=== PATIENT | male | born 1960 | race Caucasian/White ===

== ENCOUNTER 2017-08-21 14:44 | Observation (INO) ==
[2017-08-21] MEDS ORDERED: 0.9 % Sodium Chloride 1,000 ML IVC ONE (15:21)
--- NOTE | 2017-08-21 15:32 | Emergency Department Note ---
Disposition Clinical Impression: Pulmonary mass Pneumonia Qualifiers: Pneumonia type: due to unspecified organism Laterality: left Lung location: upper lobe of lung Qualified Code(s): J18.1 - Lobar pneumonia, unspecified organism Acute kidney failure Qualifiers: Acute renal failure type: unspecified Qualified Code(s): N17.9 - Acute kidney failure, unspecified Disposition: Admitted As Inpatient Condition: Good Forms: Work/School Release, ED Satisfaction Letter Time of Disposition: 18:43 Syncope HPI - General Chief Complaint: ED Dizziness Stated Complaint: dizziness when standing Time Seen by Provider: 08/21/17 15:02 Source: patient, EMS Mode of arrival: ambulatory Limitations: no limitations Nursing Notes Reviewed: Yes Vital Signs Reviewed: Yes - History of Present Illness HPI Narrative: 57 year old male with 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 He states that he is a [employer] [facility] and he has had near syncope 10s of times this past week and had at least 2-3 syncopal episodes. Cheyanne states that he is concerned that it is the blockages in his neck and his daughter at bedside states that she is agitated and angry at the [employer] and is very anxious at bedside and states "she wants something done!", cheyanne is states that when he has his syncopal episode he starts to see spots and then he sits down and it resolves. Cheyanne states that this has been an on going problem and is getting worse. Cheyanne upon arrival has a blood pressure that is 70/50s at this time. He denies all other sypmtomat other than increased right sided neck pain that radites into this head and back. - Related Data Home Medications Medication Instructions Recorded Confirmed Isosorbide MONOnitrate (24 HR) 15 mg PO DAILY 08/21/17 08/21/17 [Imdur] Lisinopril [Zestril] 10 mg PO DAILY 08/21/17 08/21/17 Metoprolol XL (24 HR) Succ [Toprol 50 mg PO DAILY 08/21/17 08/21/17 XL] Omeprazole [PriLOSEC] 20 mg PO DAILY 08/21/17 08/21/17 Allergies Allergy/AdvReac Type Severity Reaction Status Date / Time bee venom protein (honey bee) Allergy Anaphylaxis Verified 08/21/17 14:45 Constitutional: Denies: fever, chills, weakness, weight change Eyes: Denies: eye pain, eye discharge, vision change ENT ED: Denies: ear pain, throat pain, dental pain, hearing loss, epistaxis, congestion, dysphagia Cardiovascular: Denies: chest pain, palpitations, dyspnea on exertion, edema, syncope Respiratory: Denies: cough, dyspnea, wheezes, hemoptysis, stridor Gastrointestinal: Denies: abdominal pain, nausea, vomiting, diarrhea, constipation, hematemesis, melena, hematochezia Genitourinary: Denies: urgency, dysuria, frequency, hematuria Musculoskeletal: Reports: neck pain. Denies: back pain, arthralgia, myalgia Integumentary: Denies: rash, abrasion, lesions Neurological: Reports: other (syncope). Denies: headache, weakness, numbness, paresthesias, confusion, abnormal gait, vertigo Psychiatric: Denies: anxiety, depression, suicidal thoughts, homicidal thoughts , auditory hallucinations, visual hallucinations Endocrine: Denies: fatigue Hematological/Lymphatic: Denies: easy bleeding, easy bruising Allergic/Immunologic: Denies: facial swelling, urticaria Past Medical History - Past Medical History Medical history: Reports: non-contributory Psychiatric history: Reports: no psych history - Social History Smoking Status: Current every day smoker Smokeless Tobacco Status: No Alcohol use: Reports: none Drug use: Reports: none Physical Exam - General Limitations: no limitations General appearance: alert - Head Head exam: atraumatic, normocephalic, normal inspection - Eye Eye exam: Present: normal appearance, PERRL, EOMI - Expanded Eye Exam Pupils: Left: reactive - ENT ENT exam: normal exam, normal oropharynx, mucous membranes moist - Expanded ENT Exam External ear exam: Present: normal external inspection Mouth exam: Present: normal external inspection Teeth exam: Present: normal inspection Throat exam: Present: normal inspection - Neck Neck exam: Present: normal inspection, full ROM, trachea midline - Chest Chest inspection: Present: normal inspection, symmetric chest wall rise - Respiratory Respiratory exam: Present: normal lung sounds bilaterally - Cardiovascular Cardiovascular exam: Present: regular rate, normal rhythm, normal heart sounds - Abdominal Exam Abdominal exam: Present: soft, Non-Tender. Absent: tenderness, distention, guarding, rebound, rigidity - Extremities Exam Extremities exam: Present: normal inspection, full ROM. Absent: tenderness, pedal edema - Expanded Upper Extremity Exam Shoulder exam: Present: normal inspection, full ROM Arm exam: Present: normal inspection, full ROM Elbow exam: Present: normal inspection, full ROM Forearm/Wrist exam: Present: normal inspection, full ROM Hand exam: Present: normal inspection, full ROM Vascular exam: Normal: capillary refill, radial pulse - Expanded Lower Extremity Exam Hip/Pelvis exam: Present: normal inspection, full ROM Upper leg exam: Present: normal inspection, full ROM Knee exam: Present: normal inspection, full ROM Lower leg exam: Present: normal inspection, full ROM Ankle exam: Present: normal inspection, full ROM Foot/toe exam: Present: normal inspection, full ROM Neurovascular/Tendon exam: Absent: motor deficit, sensory deficit, tendon deficit Gait: observed and normal - Back Exam Back exam: Present: normal inspection, full ROM. Absent: tenderness - Neurological Exam Neurological exam: Present: alert, oriented X3 - Expanded Neurological Exam Patient oriented to: Present: person, place, time Speech: Present: fluid speech Cranial nerves: EOM function (II, III, IV, ): Normal, facial sensation (V): Normal, facial palsy (VII): Normal, gag reflex (IX): Normal, spinal accessory function (XI): Normal, tongue deviation (XII): Normal Cerebellar function: finger to nose: Normal, heel to sofia: Normal Cerebellar function: normal gait, Romberg normal Motor strength - LUE: 4/5 Motor strength - RUE: 4/5 Motor strength - LLE: 4/5 Motor strength - RLE: 4/5 Upper motor neuron exam: long neglect: Absent bilaterally, pronator drift: Absent bilaterally, Babinski sign: Absent bilaterally Sensory exam upper extremity: light touch: Normal, pin prick: Normal Sensory exam lower extremity: light touch: Normal, pin prick: Normal Coma Scale Eye Opening: Spontaneous Coma Scale Motor Response: Obeys Commands Coma Scale Verbal Response: Oriented Coma Scale Total: 15 - Psychiatric Psychiatric exam: Present: normal affect, normal mood - Skin Skin exam: Present: warm, dry, intact, normal color Course Course Narrative: we will do a syncope workup and include a CTA neck in addition and HCT. - Consultations Consultation #1: discussed case with Shelby ARREGUIN and she has accepted patient to her service. PAtinet and family have been updated and are agreeable to plan. Time: 18:42 Vital Signs Temperature 98.2 F 08/21/17 14:45 Pulse Rate 79 08/21/17 14:45 Respiratory Rate 16 08/21/17 14:45 Blood Pressure 98/50 08/21/17 14:45 O2 Sat by Pulse Oximetry 97 08/21/17 14:45 Temperature 98.2 F 08/21/17 14:45 Pulse Rate 79 08/21/17 14:45 Respiratory Rate 16 08/21/17 14:45 Blood Pressure 98/50 08/21/17 14:45 O2 Sat by Pulse Oximetry 97 08/21/17 14:45 Oxygen Delivery Oxygen Delivery Room Air Syncope - Medical Records Medical records reviewed: Yes I reviewed the patient's medical records. - Lab Data Lab results reviewed: Yes I reviewed the patient's lab results. Result diagrams: 08/21/17 15:15 08/21/17 15:15 Lab Results 08/21/17 08/21/17 08/21/17 Range/Units 15:15 15:15 15:15 WBC 7.9 (4.3-11.1) K/mcL RBC 3.70 L (4.19-5.50) M/mcL Hgb 10.9 L (12.9-16.9) g/dL Hct 33.1 L (37.5-50.1) % MCV 89.5 (83.0-100.0) fL MCH 29.5 (28.0-33.3) pg MCHC 32.9 (31.6-35.5) g/dL RDW 13.0 (11.5-14.5) % Plt Count 239 (140-400) K/mcL MPV 10.4 (9.4-12.4) fL Immature Gran % 0.3 (0-4) % Seg Neutrophils % 59.0 % Lymphocytes % 25.5 % Monocytes % 10.4 % Eosinophils % 4.0 % Basophils % 0.8 % Neutrophils # 4.7 (1.6-8.9) K/mcL Lymphocytes # 2.0 (0.6-4.6) K/mcL Monocytes # 0.8 (0.0-1.3) K/mcL Eosinophils # 0.3 (0.0-0.6) K/mcL Basophils # 0.1 (0.0-0.2) K/mcL PT 12.0 (9.4-12.1) Seconds INR 1.1 APTT 27.0 (26.0-36.0) Seconds Sodium 138 (136-145) mEq/L Potassium 4.3 (3.5-4.5) mEq/L Chloride 108 (98-109) mEq/L Carbon Dioxide 22 (19-29) mEq/L BUN 16 (8-26) mg/dL Creatinine 1.88 H (0.72-1.25) mg/dL Est GFR ( Amer) 45 L (> 60) Est GFR (Non-Af Amer) 37 L (> 60) BUN/Creatinine Ratio 9 (6-26) Glucose 82 (70-99) mg/dL Calculated Osmolality 286 (280-300) Calcium 9.2 (8.6-10.8) mg/dL Troponin I (0-0.03) ng/mL Urine Color (Yellow) Urine Clarity (Clear) Urine pH (5.0-8.0) pH Units Ur Specific [place] (1.010-1.025) Urine Protein (Neg-Trace) mg/dL Urine Glucose (UA) (Normal) mg/dL Urine Ketones (Negative) mg/dL Urine Blood (Negative) Urine Nitrite (Negative) Urine Bilirubin (Negative) Urine Urobilinogen (Normal) mg/dL Ur Leukocyte Esterase (Negative) Urine Microscopic RBC (0-3) per hpf Ur Squamous Epith Cells (None-Few) per lpf Urine Bacteria (None-Few) per hpf Hyaline Casts (None-Few) per lpf Ur Culture Indicated? (NO) Urine Opiates Screen (Kwodjw=969) ng/mL Ur Barbiturates Screen (Jhxfdh=358) ng/mL Ur Phencyclidine Scrn (Cutoff=25) ng/mL Ur Amphetamines Screen (Cwzdhe=5601) ng/mL U Benzodiazepines Scrn (Gcasid=416) ng/mL Urine Cocaine Screen (Cutoff= 300) ng/mL U Marijuana (THC) Screen (Cutoff = 50) ng/mL 08/21/17 08/21/17 08/21/17 Range/Units 15:15 17:32 17:32 WBC (4.3-11.1) K/mcL RBC (4.19-5.50) M/mcL Hgb (12.9-16.9) g/dL Hct (37.5-50.1) % MCV (83.0-100.0) fL MCH (28.0-33.3) pg MCHC (31.6-35.5) g/dL RDW (11.5-14.5) % Plt Count (140-400) K/mcL MPV (9.4-12.4) fL Immature Gran % (0-4) % Seg Neutrophils % % Lymphocytes % % Monocytes % % Eosinophils % % Basophils % % Neutrophils # (1.6-8.9) K/mcL Lymphocytes # (0.6-4.6) K/mcL Monocytes # (0.0-1.3) K/mcL Eosinophils # (0.0-0.6) K/mcL Basophils # (0.0-0.2) K/mcL PT (9.4-12.1) Seconds INR APTT (26.0-36.0) Seconds Sodium (136-145) mEq/L Potassium (3.5-4.5) mEq/L Chloride (98-109) mEq/L Carbon Dioxide (19-29) mEq/L BUN (8-26) mg/dL Creatinine (0.72-1.25) mg/dL Est GFR ( Amer) (> 60) Est GFR (Non-Af Amer) (> 60) BUN/Creatinine Ratio (6-26) Glucose (70-99) mg/dL Calculated Osmolality (280-300) Calcium (8.6-10.8) mg/dL Troponin I 0.01 (0-0.03) ng/mL Urine Color Yellow (Yellow) Urine Clarity Hazy (Clear) Urine pH 6.0 (5.0-8.0) pH Units Ur Specific [place] 1.012 (1.010-1.025) Urine Protein Negative (Neg-Trace) mg/dL Urine Glucose (UA) Normal (Normal) mg/dL Urine Ketones Negative (Negative) mg/dL Urine Blood Negative (Negative) Urine Nitrite Negative (Negative) Urine Bilirubin Negative (Negative) Urine Urobilinogen Normal (Normal) mg/dL Ur Leukocyte Esterase Negative (Negative) Urine Microscopic RBC 0-3 (0-3) per hpf Ur Squamous Epith Cells Few (None-Few) per lpf Urine Bacteria None Seen (None-Few) per hpf Hyaline Casts None Seen (None-Few) per lpf Ur Culture Indicated? NO (NO) Urine Opiates Screen Negative (Pxfhdk=360) ng/mL Ur Barbiturates Screen Negative (Pxxqdy=291) ng/mL Ur Phencyclidine Scrn Negative (Cutoff=25) ng/mL Ur Amphetamines Screen Negative (Ctzbwf=9719) ng/mL U Benzodiazepines Scrn Negative (Ajfnze=661) ng/mL Urine Cocaine Screen Positive H (Cutoff= 300) ng/mL U Marijuana (THC) Screen Positive H (Cutoff = 50) ng/mL - Radiology Data Radiology results reviewed: Yes I reviewed the patient's radiology results. - EKG Data EKG attestation: Yes I reviewed and interpreted this EKG. EKG results narrative: NSR with rate of 70. NO STEMI. normal interlva.s no change from 04/30/12. 1523
[2017-08-21 15:42] LABS: Basophils # 0.1 K/mcL (0.0-0.2); Basophils % 0.8 %; Eosinophils # 0.3 K/mcL (0.0-0.6); Hematocrit 33.1 % (37.5-50.1); Hemoglobin 10.9 g/dL (12.9-16.9); Immature Granulocytes % 0.3 % (0-4); Lymphocytes % 25.5 %; Mean Corpuscular HGB Conc 32.9 g/dL (31.6-35.5); Mean Corpuscular Hemoglobin 29.5 pg (28.0-33.3); Mean Corpuscular Volume 89.5 fL (83.0-100.0); Mean Platelet Volume 10.4 fL (9.4-12.4); Monocytes # 0.8 K/mcL (0.0-1.3); Monocytes % 10.4 %; Neutrophils # 4.7 K/mcL (1.6-8.9); Platelet Count 239 K/mcL (140-400)
[2017-08-21 15:45] LABS: INR 1.1
[2017-08-21 15:52] LABS: Calcium 9.2 mg/dL (8.6-10.8); Potassium 4.3 mEq/L (3.5-4.5)
[2017-08-21 17:47] LABS: Bilirubin,Urine Negative (Negative); Blood,Urine Negative (Negative); Color,Urine Yellow (Yellow); Glucose,Urine (UA) Normal (Normal); Ketones,Urine Negative (Negative); Leukocyte Esterase,Urine Negative (Negative); Nitrite,Urine Negative (Negative); Protein,Urine Negative (Neg-Trace); Specific Gravity,Urine 1.012 (1.010-1.025); Urobilinogen,Urine Normal (Normal)
[2017-08-21 17:53] LABS: Bacteria,Urine None Seen per hpf (None-Few); Hyaline Casts,Urine None Seen per lpf (None-Few); RBC,Urine 0-3 per hpf (0-3); Squamous Epithelial Cell,Urine Few per lpf (None-Few)
[2017-08-21 17:54] LABS: Amphetamine Screen,Urine Negative ng/mL (Cutoff=1000); Barbiturate Screen,Urine Negative ng/mL (Cutoff=200); Benzodiazepines Screen,Urine Negative ng/mL (Cutoff=200); Cannabinoid Screen,Urine Positive ng/mL (Cutoff = 50); Cocaine Screen,Urine Positive ng/mL (Cutoff= 300); Opiate Screen,Urine Negative ng/mL (Cutoff=300); Phencyclidine Screen,Urine Negative ng/mL (Cutoff=25)
[2017-08-21 17:56] LABS: Clarity,Urine Hazy (Clear)
[2017-08-21] MEDS ORDERED: Levofloxacin 750 MG/150 ML 750 MG/150 ML BAG IVPB ONE (18:02)
[2017-08-21] MEDS ORDERED: *HR* Enoxaparin 80 MG/0.8 ML SYRINGE SQ STA (18:11)
--- NOTE | 2017-08-21 22:24 | Internal Med History&Physical ---
Date of Encounter: 08/21/17 Time of Encounter: 21:15 Assessment and Plan (1) Syncope Current visit: Yes Status: Acute of unclear etiology CT head negative for any acute intracranial abnormality will rule out cardiogenic causes f/u carotid dopplers, 2D echo will obtain orthostatic vitals tele monitoring fall precautions pt was noted to be severely hypotensive upon arrival to the ER therefore it could also be related to drug induced hypotension causing syncope. Will hold antihypertensive medications at this time. Qualifiers: Syncope type: unspecified Qualified Code(s): R55 - Syncope and collapse (2) Acute kidney injury Current visit: Yes Status: Acute Unknown baseline renal function hold lisinopril at this time will closely monitor renal function (3) Pulmonary mass Current visit: Yes Status: Acute incidental finding on CT neck: Suspicious spiculated 1.1 cm nodule within the medial aspect of the left upper lung, concerning for neoplasm. Further evaluation with PET-CT is recommended. Additional nodular opacities within the lungs superiorly. These could be inflammatory, although ill-defined neoplasm remains in the differential as well. Please call pulmonology consultation in the morning (4) CHF (congestive heart failure) Current visit: Yes Status: Acute no clinical signs of acute CHF exacerbation will continue home medications holding BB at this time given positive tox screen for cocaine f/u 2D echo Qualifiers: Congestive heart failure type: unspecified congestive heart failure type Congestive heart failure chronicity: chronic Qualified Code(s): I50.9 - Heart failure, unspecified (5) Hypertension Current visit: Yes Status: Chronic Noted to be hypotensive upon arrival with SBP of 70 hold antihypertensive medications at this time monitor BP closely Qualifiers: Hypertension type: essential hypertension Qualified Code(s): I10 - Essential (primary) hypertension (6) Tobacco abuse Current visit: Yes Status: Acute smoking cessation counseling provided patient states he is trying to cut down refused nicotine replacement therapy (7) DVT prophylaxis Current visit: Yes Status: Acute Heparin SQ Internal Medicine - H&P: HPI Chief complaint: syncope Admitted From: Home Plans for Post Hospital Care: Home History of present illness: Mr. Hernandez is a 57 year old male with PMH of CHF, HTN, tobacco abuse who is brought to the hospital by family s/p syncopal episode. Patient states he is a patient with the [facility] system and has been trying to get his syncope work up done since June 2017 as he has been having recurrent syncopal episodes since then. He states he was doing yard work earlier today and he started feeling lightheaded and having black spots infront of his eyes due to which he went back into the house, shortly after he got into his house, he fainted and fell to the ground. Denies any injuries to the head or any trauma. States his daughter witnessed this episode that prompted his visit to the ER. He reports of being an every day smoker and reports of cutting down to 1/2ppd. He reported that his daughter uses cocaine and he got a cigarettes from her prior to coming to the hospital which had marijuana in them. He denies any cocaine use as his tox screen is positive for cocaine and marijuana. He denies any chest pain at this time. He states these syncopal episodes occur sporadically with the same presentation as it happened today. Denies any lightheadedness, dizziness, headache, chest pain, sob, abd pain, n/v, fever, or chills at this time. Code status: Full code Social history: everyday smoker, former marijuana and cocaine use. Pt adamantly refuses using any cocaine or marijuana but states that the cigarettes he received from his daughter earlier today might have been glazed with both marijuana and cocaine. Past Med Surg Social Fam HX - Past Medical History Medical history: CHF Psychiatric history: no psych history - Social History Smoking Status: Current every day smoker Smokeless Tobacco Status: No Alcohol use: none Drug use: none Internal Medicine - H&P: Meds Isosorbide MONOnitrate (24 HR) [Imdur] 15 mg PO DAILY 08/21/17 [History] Lisinopril [Zestril] 10 mg PO DAILY 08/21/17 [History] Metoprolol XL (24 HR) Succ [Toprol XL] 50 mg PO DAILY 08/21/17 [History] Omeprazole [PriLOSEC] 20 mg PO DAILY 08/21/17 [History] 3 Allergy/AdvReac Type Severity Reaction Status Date / Time bee venom protein (honey bee) Allergy Anaphylaxis Verified 08/21/17 14:45 All Systems PM: A 10-system review of systems was performed and is negative for pertinent findings except as documented above in the HPI. - Constitutional Constitutional: as per HPI - Constitutional Vitals: Temp Pulse Resp BP Pulse Ox 98.2 F 74 14 122/80 98 08/21/17 14:45 08/21/17 19:00 08/21/17 21:40 08/21/17 21:40 08/21/17 19:00 General appearance: Present: cooperative, A&O X 3, no acute distress, underweight, answers questions appropriately - Head Head exam: Present: atraumatic, normocephalic - Eye Eye exam: Present: conjuntiva pink, sclera anicteric - Respiratory Respiratory exam: Present: CTAB. Absent: respiratory distress, wheezes - Cardiovascular Cardiovascular exam: Present: RRR, +S1, +S2. Absent: diastolic murmur, gallop, rubs, systolic murmur - GI/Abdominal GI/Abdominal exam: Present: normal bowel sounds, soft, no peritoneal signs. Absent: distended, tenderness - Extremities Exam Extremities exam: Present: warm, radial pulses palpable and symmetrical. Absent : calf tenderness, cyanotic, pedal edema - Neurological Exam Neurological exam: Present: alert, oriented X3 - Psychiatric Psychiatric exam: Present: normal affect, normal mood Internal Med - H&P Results - Labs CBC & Chem 7: 08/21/17 15:15 08/21/17 15:15
[2017-08-21] MEDS ORDERED: Naloxone 0.4 MG/ML INJ IVP PRN (22:25)
[2017-08-21] MEDS ORDERED: Ondansetron 4 MG/2 ML VIAL IVP PRN (22:25)
[2017-08-21] MEDS ORDERED: *HR* Morphine 2 MG/ML SYRINGE IVP PRN (22:25)
[2017-08-21] MEDS ORDERED: *HR* OxyCODONE Immed Rel 5 MG TABLET PO PRN (22:25)
[2017-08-21] MEDS ORDERED: Ipratropium/Albuterol Neb 3 ML IH PRN (22:39)
[2017-08-22 05:17] LABS: Basophils % 0.8 %; Eosinophils # 0.3 K/mcL (0.0-0.6); Eosinophils % 5.4 %; Hematocrit 33.5 % (37.5-50.1); Immature Granulocytes % 0.2 % (0-4); Lymphocytes # 1.6 K/mcL (0.6-4.6); Mean Corpuscular HGB Conc 32.8 g/dL (31.6-35.5); Mean Corpuscular Hemoglobin 29.3 pg (28.0-33.3); Mean Corpuscular Volume 89.1 fL (83.0-100.0); Mean Platelet Volume 10.2 fL (9.4-12.4); Monocytes # 0.7 K/mcL (0.0-1.3); Monocytes % 13.2 %; Neutrophils # 2.4 K/mcL (1.6-8.9); Platelet Count 176 K/mcL (140-400); Red Blood Count 3.76 M/mcL (4.19-5.50); Red Cell Distribution Width 12.8 % (11.5-14.5); Segmented Neutrophils % 48.4 %
[2017-08-22 05:35] LABS: BUN/Creatinine Ratio 13 (6-26); Blood Urea Nitrogen 17 mg/dL (8-26); Carbon Dioxide 23 mEq/L (19-29); Chloride 113 mEq/L (98-109); Chol/HDL Ratio 5.1 (0-4.9); Cholesterol 139 mg/dL (< 200); Glucose 87 mg/dL (70-99); HDL Cholesterol 27 mg/dL (40-59); LDL Cholesterol,Calculated 91 mg/dL (0-99); Magnesium 1.9 mg/dL (1.6-2.6); Osmolality,Calculated 293 (280-300); Phosphorous 3.3 mg/dL (2.3-4.7); Sodium 141 mEq/L (136-145); Triglycerides 107 mg/dL (< 150); eGFR For African Americans > 60 (> 60); eGFR For Non-African Americans 56 (> 60)
[2017-08-22 05:42] LABS: Potassium 5.2 mEq/L (3.5-4.5)
[2017-08-22] MEDS: *HR* Heparin 5,000 UNIT/ML VIAL SQ SCH ×2 (06:24→17:58)
--- NOTE | 2017-08-22 09:09 | Pulmonology Consult Note ---
Date of Encounter: 08/22/17 Time of Encounter: 09:09 Assessment and Plan (1) Lung nodule Current Visit: Yes Status: Acute During smoking history primary lung cancer would be in the differential I reordered a formal CT of the thorax to further evaluate any other sort of changes I think that the other ill-defined opacities in left upper lobe are more related to chronic inflammatory changes. He will need follow-up in pulmonary clinic with likely PET/CT we can discuss sampling versus excision based upon statistical probability of malignancy (2) Syncope Current Visit: Yes Status: Acute This is being managed by the primary medicine service he says he feels a bit better since his been admitted Qualifiers: Syncope type: unspecified Qualified Code(s): R55 - Syncope and collapse (3) Tobacco abuse Current Visit: Yes Status: Acute I encouraged patient to stop smoking and gave him advice on ways to quit including nicotine replacement which could be provided for him inpatient (4) DVT prophylaxis Current Visit: Yes Status: Acute Recommend chemical DVT prophylaxis unless contraindication arises while inpatient (5) COPD (chronic obstructive pulmonary disease) Current Visit: Yes Status: Acute Visual long smoking history and emphysematous changes on CT scan he currently is managed with a [place]/Afua combination with can be continued on an as-needed basis recommend formal evaluation outpatient pulmonary clinic including PFTs Qualifiers: Emphysema type: unspecified Qualified Code(s): J43.9 - Emphysema, unspecified History of Present Illness Consult date: 08/22/17 Requesting physician: Ling García Reason for consult: abnormal CXR/CT Chief complaint: Dizziness History of present illness: Very pleasant 57-year-old gentleman past medical history of COPD and tobacco abuse who presented with concern for dizziness and syncope as part of this workup he underwent a CT of his neck and the lung cuts that were obtained showed a proximal only 1 cm left upper lobe spiculated nodule for which pulmonary's been consulted. Patient is a lifelong smoker started age 15 smoked 2 packs a day now down to about 1 pack a day he has been diagnosed with COPD in the past and takes Combivent for this. 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 He keeps a dog would not exotic pets. He says occasionally he uses illicit drugs and his urine tox was notable for both THC and cocaine on admission. He denies fevers chills shortness of breath or hemoptysis he also has not experienced night sweating or joint pain. He does occasionally cough sometimes this is productive but he thinks is related to his smoking. No family history of lung malignancy and himself does not have any previous history of cancer Past Med Surg Social Fam HX - Past Medical History Medical history: CHF, GERD, hypertension Psychiatric history: no psych history - Social History Smoking Status: Current every day smoker Smokeless Tobacco Status: No Alcohol use: none Drug use: none Medications and Allergies Isosorbide MONOnitrate (24 HR) [Imdur] 15 mg PO DAILY 08/21/17 [History] Lisinopril [Zestril] 10 mg PO DAILY 08/21/17 [History] Metoprolol XL (24 HR) Succ [Toprol XL] 50 mg PO DAILY 08/21/17 [History] Omeprazole [PriLOSEC] 20 mg PO DAILY 08/21/17 [History] 3 Allergy/AdvReac Type Severity Reaction Status Date / Time bee venom protein (honey bee) Allergy Anaphylaxis Verified 08/21/17 14:45 All Systems: A 10-system review of systems was performed and is negative for pertinent findings except as documented above in the HPI. Physical Examination Vital Signs: Vital Signs, Last 4 Hours Temp Pulse Resp BP Pulse Ox 08/22/17 07:28 98.1 F 77 15 124/84 98 08/22/17 05:16 97.8 F 72 16 126/77 96 General appearance: no acute distress Eyes: nonicteric ENT: oropharynx moist Neck: supple Effort: normal Auscultation: bilateral: clear Cardiovascular: regular rate and rhythm Gastrointestinal: normoactive bowel sounds Integumentary: normal Extremities: no edema, no clubbing Musculoskeletal: no deformities normal mental status, non-focal exam mood appropriate Results - Laboratory Findings CBC and BMP: 08/22/17 05:00 08/22/17 05:00 PT/INR, D-dimer PT 12.0 Seconds (9.4-12.1) 08/21/17 15:15 Abnormal lab findings: Abnormal lab results RBC 3.76 M/mcL (4.19-5.50) L 08/22/17 05:00 Hgb 11.0 g/dL (12.9-16.9) L 08/22/17 05:00 Hct 33.5 % (37.5-50.1) L 08/22/17 05:00 Potassium 5.2 mEq/L (3.5-4.5) H 08/22/17 05:00 Chloride 113 mEq/L (98-109) H 08/22/17 05:00 Creatinine 1.31 mg/dL (0.72-1.25) H 08/22/17 05:00 Est GFR (Non-Af Amer) 56 (> 60) L 08/22/17 05:00 HDL Cholesterol 27 mg/dL (40-59) L 08/22/17 05:00 Cholesterol/HDL Ratio 5.1 (0-4.9) H 08/22/17 05:00 Urine Cocaine Screen Positive ng/mL (Cutoff= 300) H 08/21/17 17:32 U Marijuana (THC) Screen Positive ng/mL (Cutoff = 50) H 08/21/17 17:32 - Diagnostic Findings Chest x-ray: report reviewed, image reviewed Additional studies: CT scan of the the cervical spine suspicious spiculated 1.1 cm nodules in the medial aspect left upper lobe - Clinical Findings Intake & Output: Intake & Output 08/21/17 08/22/17 08/22/17 23:59 07:59 15:59 Intake Total 150 / 1150 200 / 200 Output Total 0 / 0 Balance 150 / 1150 200 / 200 Weight 61.25 kg Consult Discharge Plan - Plan [facility]errals: [facility]Primary Care Provider[facility] -
[2017-08-22] MEDS: Isosorbide MONOnitrate (24 HR) 30 MG TAB.ER.24H PO SCH (10:45)
--- NOTE | 2017-08-22 18:16 | Internal Med Progress Note ---
Date of Encounter: 08/22/17 Time of Encounter: 10:00 - Assessment and plan (1) Positive urine drug screen Current Visit: Yes Status: Acute Assessment and plan: Drug screen shows positive for cocaine and marijuana. Patient denies drug use. (2) Syncope Current Visit: Yes Status: Acute Assessment and plan: Etiology is undetermined. Patient said he has almost a once a day syncope since June. [facility] - Place patient on continuous cardiac monitoring to rule out arrhythmia. - EKG reviewed, there is no signs of AV block or branch block. - Echocardiogram. - Orthostatic vitals. - It is reported patient has hypotension when presented to ER. We will hold all hypertension medication and close monitor BP. Qualifiers: Syncope type: unspecified Qualified Code(s): R55 - Syncope and collapse (3) Acute kidney injury Current Visit: Yes Status: Acute Assessment and plan: Elevated creatinine level on admission. No baseline available. Improved after hydration. (4) Tobacco abuse Current Visit: Yes Status: Acute Assessment and plan: Smoking cessation education. Patient declined nicotine patch (5) DVT prophylaxis Current Visit: Yes Status: Acute Assessment and plan: Heparin subcutaneously (6) CHF (congestive heart failure) Current Visit: Yes Status: Acute Assessment and plan: Stable. Appears euvolemic. Repeat Echo LVEF 50-55%. Mild diastolic dysfunction Qualifiers: Congestive heart failure type: unspecified congestive heart failure type Congestive heart failure chronicity: chronic Qualified Code(s): I50.9 - Heart failure, unspecified (7) Hypertension Current Visit: Yes Status: Chronic Assessment and plan: Hold hypertension medication for now because patient presented hypotension ER. Closely monitor BP Qualifiers: Hypertension type: essential hypertension Qualified Code(s): I10 - Essential (primary) hypertension (8) Lung nodule Current Visit: Yes Status: Chronic Assessment and plan: Pulmonary consult appreciated. Outpatient follow-up with pulmonology - Time Spent With Patient 25 - 35 minutes - Subjective Interval history: Patient is a 57-year-old male admitted for syncope. His past medical history is significant for tobacco abuse, CHF, hypertension. Pt was seen and examined. Denies dizziness, palpitation, shortness of breath, or chest pain. Vitals are stable. Patient was found pulmonary nodule on CT. Pulmonology consult is appreciated. We will consider outpatient PET/CT scan and follow-up with pulmonology. Continue syncope workup. - Constitutional Vitals: Temp Pulse Resp BP Pulse Ox 97.8 F 70 15 110/67 96 08/22/17 15:00 08/22/17 15:00 08/22/17 15:00 08/22/17 15:00 08/22/17 15:00 General appearance: Present: cooperative, A&O X 3, no acute distress, underweight, answers questions appropriately - Head Head exam: Present: atraumatic, normocephalic - Eye Eye exam: Present: PERRL, conjuntiva pink, sclera anicteric Pupils: Present: PERRL - Neck Neck exam general surgery: Present: supple, trachea midline. Absent: lymphadenopathy - Respiratory Respiratory exam: Present: CTAB. Absent: accessory muscle use, rales, rhonchi, wheezes - Cardiovascular Cardiovascular exam: Present: RRR, +S1, +S2. Absent: diastolic murmur, gallop, rubs, systolic murmur - GI/Abdominal GI/Abdominal exam: Present: normal bowel sounds, soft, no peritoneal signs. Absent: distended, tenderness - Extremities Exam Extremities exam: Present: warm, radial pulses palpable and symmetrical. Absent : calf tenderness, cyanotic, pedal edema - Neurological Exam Neurological exam: Present: CN II-XII intact, oriented X3, no focal deficits. Absent: pronater drift, facial droop, speech deficit - Skin Skin exam: Present: dry, intact Internal Medicine: Result - Labs CBC & Chem 7: 08/22/17 05:00 08/22/17 05:00 Labs: Short CBC 08/22/17 Range/Units 05:00 WBC 5.0 (4.3-11.1) K/mcL Hgb 11.0 L (12.9-16.9) g/dL Hct 33.5 L (37.5-50.1) % Plt Count 176 (140-400) K/mcL Neutrophils # 2.4 (1.6-8.9) K/mcL BMP 08/22/17 05:00 Sodium 141 Potassium 5.2 H Chloride 113 H Carbon Dioxide 23 BUN 17 Creatinine 1.31 H Glucose 87 Calcium 9.0 - ABG Interpretation ABG results: PT/INR, D-dimer PT 12.0 Seconds (9.4-12.1) 08/21/17 15:15 - EKG Interpretation EKG Interpreted by Myself: Yes EKG shows normal: sinus rhythm Rate: normal - Impressions Impressions Chest CT 08/22/17 09:45 IMPRESSION: 1. 12 x 12 mm nodule in the medial left upper lobe has enlarged from 3-[address] scan 05/01/2011. Consider biopsy and/or PET-CT scan. 2. 8 x 5 mm peripheral nodule in the right lower lobe is below the reliable PET imaging threshold, new compared to the prior CT scan. 3. Mixed ground-glass and solid nodule in the peripheral left upper lobe has enlarged from 05/01/2011, suggesting a low-grade malignancy such as adenocarcinoma in situ. 4. Ground-glass nodule in the right upper lobe. Attention on follow-up. RECOMMENDATIONS: Fleischner Society guidelines for follow-up and management of incidentally detected pulmonary nodules: Multiple Solid Nodules: Nodule size less than 6 mm In a low-risk patient, no routine follow-up. In a high-risk patient, optional CT at 12 months. Nodule size equals 6-8 mm In a low-risk patient, CT at 3-6 months, then consider CT at 18-24 months. In a high-risk patient, CT at 3-6 months, then CT at 18-24 months. Nodule size greater than 8 mm In a low-risk patient, CT at 3-6 months, then consider CT at 18-24 months. In a high-risk patient, CT at 3-6 months, then CT at 18-24 months. - Low risk patients include individuals with minimal or absent history of smoking and other known risk factors. - High risk patients include individuals with a history or smoking or known risk factors. Radiology 2017 http://pubs.rsna.org/doi/full/10.1148/[email or web address] D/ / Damon Burns MD / Damon Burns MD Interpreting Provider: Damon Burns MD Echocardiogram 08/22/17 22:26 Impressions: LVEF 50-55%. Normal LV chamber size, wall thickness and function. Mild left ventricular diastolic dysfunction. Normal right ventricular structure and function. Mild pulmonary hypertension. No significant valvular dysfunction. Left Ventricular Wall Motion: Rest Echo Findings All wall segments showed normal motion. Findings: Study Quality * Technically adequate exam. ECG Findings * Possible ectopic atrial rhythm. Premature beats noted. Left Ventricle * LVEF 50-55%. * Normal LV chamber size, wall thickness and function. * Mild left ventricular diastolic dysfunction. Right Ventricle * Normal right ventricular structure and function. Left Atrium * Mild to moderately dilated left atrium. Right Atrium * Mildly dilated right atrium. Interatrial Septum * No evidence of PFO by color Doppler. Aortic Valve * Trileaflet aortic valve with normal function. * No aortic regurgitation. * No aortic stenosis. Mitral Valve * Normal mitral valve structure and function. * No mitral stenosis. * Trace mitral regurgitation. Tricuspid Valve * Normal tricuspid valve structure and function. * Trace tricuspid regurgitation. * Mild pulmonary hypertension. Pulmonic Valve * Normal pulmonic valve structure and function. * No pulmonic regurgitation. Aorta * Normally sized aortic root. Pericardium * The pericardium appears normal. IVC * Normal IVC dimensions and inspiratory collapse. Pulmonary Artery * Normal visualized portions of the main pulmonary artery. Consult Discharge Plan - Plan [facility]errals: [facility] [Primary Care Provider] -
[2017-08-23] MEDS: *HR* Heparin 5,000 UNIT/ML VIAL SQ SCH ×2 (06:11→19:04)
[2017-08-23 06:44] LABS: Basophils % 0.7 %; Eosinophils # 0.2 K/mcL (0.0-0.6); Eosinophils % 5.4 %; Hematocrit 37.2 % (37.5-50.1); Hemoglobin 12.4 g/dL (12.9-16.9); Immature Granulocytes % 0.2 % (0-4); Lymphocytes # 1.4 K/mcL (0.6-4.6); Lymphocytes % 30.4 %; Mean Corpuscular HGB Conc 33.3 g/dL (31.6-35.5); Mean Corpuscular Hemoglobin 29.9 pg (28.0-33.3); Mean Corpuscular Volume 89.6 fL (83.0-100.0); Monocytes # 0.5 K/mcL (0.0-1.3); Monocytes % 10.5 %; Neutrophils # 2.4 K/mcL (1.6-8.9); Platelet Count 179 K/mcL (140-400); Red Blood Count 4.15 M/mcL (4.19-5.50); Red Cell Distribution Width 12.9 % (11.5-14.5); Segmented Neutrophils % 52.8 %
[2017-08-23 07:00] LABS: BUN/Creatinine Ratio 19 (6-26); Blood Urea Nitrogen 19 mg/dL (8-26); Calcium 9.5 mg/dL (8.6-10.8); Carbon Dioxide 26 mEq/L (19-29); Chloride 110 mEq/L (98-109); Glucose 99 mg/dL (70-99); Osmolality,Calculated 296 (280-300); Potassium 4.8 mEq/L (3.5-4.5); Sodium 142 mEq/L (136-145); eGFR For African Americans > 60 (> 60); eGFR For Non-African Americans > 60 (> 60)
--- NOTE | 2017-08-23 08:06 | Pulmonology Progress Note ---
Date of Encounter: 08/23/17 Time of Encounter: 08:06 Assessment and Plan (1) Lung nodule Current Visit: Yes Status: Chronic This is a 56-year-old gentleman with a long smoking history who appears to have a 1.1 cm left upper lobe nodule that has grown significantly since 2010. This is worrisome for possibility of primary lung malignancy (a slow-growing variant) . In addition he has several other more inflammatory/chronic changes in the long that will need to be followed up in. Preps more most concerning is a mediastinal lymph node that is 1.5 cm. We will plan to proceed with PET CT as outpatient with plan for EBUS/ Navigational biopsy vs CT biopsy although the latter may be a bit more difficult because of proximity to the great vessels. Navigational bronchoscopy could be considered but this too would be relatively difficult procedure but would need to be discussed with the patient down the line. There is an option of possibility of surgical resection this will also be discussed with the patient in clinic. Please make sure discharge pulmonary clinic appointment will be made and I will follow up with our staff is reasonable to schedule. (2) Syncope Current Visit: Yes Status: Acute This is being evaluated by the primary medicine service Qualifiers: Syncope type: unspecified Qualified Code(s): R55 - Syncope and collapse (3) Tobacco abuse Current Visit: Yes Status: Acute I again encouraged the patient to remain tobacco free he has refused nicotine patch up to this point we can also discuss this ongoing tobacco abuse counseling in the outpatient setting and also have excellent programs available at the [facility] it the patient is interested in joining one of those (4) DVT prophylaxis Current Visit: Yes Status: Acute (5) COPD (chronic obstructive pulmonary disease) Current Visit: Yes Status: Acute Does not appear to have acute exacerbation continued metered-dose inhaler on an as needed basis and this can be discussed further in clinic with PFTs Qualifiers: Emphysema type: unspecified Qualified Code(s): J43.9 - Emphysema, unspecified Subjective Principal diagnosis: Syncope Interval history: Respiratory status is stable. It appears the dizziness and syncope is symptoms have been mitigated some degree workup is ongoing Objective PUL Vital signs: Last Vital Signs Temp 98.0 F 08/23/17 07:25 Pulse 78 08/23/17 07:25 Resp 14 08/23/17 07:25 BP 143/82 08/23/17 07:25 Pulse Ox 97 08/23/17 07:25 Results - Laboratory Findings CBC and BMP: 08/23/17 06:35 08/23/17 06:35 PT/INR, D-dimer PT 12.0 Seconds (9.4-12.1) 08/21/17 15:15 Abnormal lab findings: Abnormal lab results RBC 4.15 M/mcL (4.19-5.50) L 08/23/17 06:35 Hgb 12.4 g/dL (12.9-16.9) L 08/23/17 06:35 Hct 37.2 % (37.5-50.1) L 08/23/17 06:35 Potassium 4.8 mEq/L (3.5-4.5) H 08/23/17 06:35 Chloride 110 mEq/L (98-109) H 08/23/17 06:35 HDL Cholesterol 27 mg/dL (40-59) L 08/22/17 05:00 Cholesterol/HDL Ratio 5.1 (0-4.9) H 08/22/17 05:00 Urine Cocaine Screen Positive ng/mL (Cutoff= 300) H 08/21/17 17:32 U Marijuana (THC) Screen Positive ng/mL (Cutoff = 50) H 08/21/17 17:32 - Diagnostic Findings CT scan - chest: report reviewed, image reviewed - Clinical Findings Intake & Output: Intake & Output 08/22/17 08/23/17 08/23/17 23:59 07:59 15:59 Intake Total 100 / 100 100 / 100 Output Total 0 / 0 Balance 100 / 100 100 / 100 Weight 61.4 kg Consult Discharge Plan - Plan [facility]: [facility] [Primary Care Provider] -
[2017-08-23] MEDS: Isosorbide MONOnitrate (24 HR) 30 MG TAB.ER.24H PO SCH (10:03)
--- NOTE | 2017-08-23 17:52 | Cardiology Consult Note ---
<Macario Grayson - Last Filed: 08/23/17 17:41> Date of Encounter: 08/23/17 Time of Encounter: 17:41 Assessment and Plan (1) Syncope Status: Acute H/o of syncopal events for the past three months. They mostly occur with sudden position change or bending over. Poor fluid intake. Drinks little water. Drinks soda mostly. B/p only 70/50 on admission. Mild GARY. Likely hypovolemic. Start IV hydration. TTE showed preserved EF and no significant valvular disease. Telemetry review shows Sr with PVC, occasional couplet. Avg HR 77 bpm. No pauses or bradycardia seen. No VT. No concerning arrhythmia seen. Encouraged increase fluid intake, IV hydration, stop lisinopril and imdur. Unclear why he is taking imdur. Denies CAD/chest pain. Continue low dose bb for PVC if he can tolerate. Slow position changes encouraged. Qualifiers: Syncope type: unspecified Qualified Code(s): R55 - Syncope and collapse Discussion w patient/family: The assessment and plan as outlined above was discussed with the patient and/or family members who expressed understanding and agreement. All questions were answered. Thank you for involving us in the care of your patient. Please call with any questions. History of Present Illness Consult date: 08/23/17 Requesting physician: Heidi Moyer Consult reason: Syncope Chief complaint: dizziness, passing out History of present illness: Mr. Hernandez is a 57 year old male with a history of hTN, HLD, COPD, and lung nodules who presented from the [facility] after feeling like he was going to pass out at home. he reports passing out frequently at home since June of this year. He often has vision changes and dizziness with position change. He passed out two days ago after bending down doing yard work and quickly standing up and starting to walk. Sometimes if he moves slower or sits back down he will not pass out. He may also have SOB prior to the syncopal event. He denies loss of bowel or urine. Denies chest pain or palpitations. Denies orthopnea, PND, or edema. He was evaluated at the [facility] and was diagnosed with inner ear infection in June. Carotid US one month ago showed bilateral non-stenotic plaque. On admission he was reported to have b/p 70/50. Past Med Surg Social Fam HX - Past Medical History Attestation: Yes The following information was validated with the patient. Medical history: CHF (Reports history of CHF in 2004. [facility] completed a that time with no intervention. ), COPD, GERD, hypertension Psychiatric history: no psych history - Social History Smoking Status: Current every day smoker Smokeless Tobacco Status: No Alcohol use: none Drug use: none Medications and Allergies Omeprazole [PriLOSEC] 20 mg PO DAILY 08/21/17 [History] Metoprolol [Lopressor] 12.5 mg PO BID #30 tablet 08/24/17 [Rx] 3 Allergy/AdvReac Type Severity Reaction Status Date / Time bee venom protein (honey bee) Allergy Anaphylaxis Verified 08/21/17 14:45 All Systems Review: A 10-system review of systems was performed and is negative for pertinent findings except as documented above in the HPI. Physical Examination Vital Signs, Last 4 Hours Temp Pulse Resp BP Pulse Ox 08/23/17 15:24 97.8 F 88 14 110/76 94 General: Conversant, No Apparent Distress HEENT: Atraumatic, Normocephaly, Mucus Membranes Moist Neck: No JVD, Normal carotid pulses Cardiac: Reg Rate and Rhythm, Normal S1 and S2, No Murmur Lungs: Normal Breath Sounds, No Wheeze, Rales, Rhonchi Neuro: Alert and responsive, No focal deficits noted Abdomen: Soft, Non-Tender Skin: No rashes noted on visualized skin Musculoskeletal: No Chest Wall Tenderness Extremities: No Clubbing, No Cyanosis, No Edema, Normal Pulses Results 08/23/17 06:35 08/23/17 06:35 Lab Results 08/23/17 08/23/17 06:35 06:35 WBC 4.5 Hgb 12.4 L Hct 37.2 L Plt Count 179 Sodium 142 Potassium 4.8 H Chloride 110 H Carbon Dioxide 26 BUN 19 Creatinine 0.99 Glucose 99 Calcium 9.5 - Imaging and Cardiology Echo: report reviewed Consult Discharge Plan - Plan Instructions: Heart Failure (DC), Acute Kidney Injury (DC), Syncope (DC), Chronic Obstructive Pulmonary Disease (DC), Chronic Hypertension (DC), Pneumonia (DC) Additional Instructions: Please arrange pulmonology office visit in next week. [facility]errals: [facility] [Primary Care Provider] - Prescriptions: Metoprolol [Lopressor] 12.5 mg PO BID #30 tablet <Gabriela Art - Last Filed: 08/24/17 13:30> Date of Encounter: 08/24/17 Assessment and Plan Discussion w patient/family: The assessment and plan as outlined above was discussed with the patient and/or family members who expressed understanding and agreement. All questions were answered. Thank you for involving us in the care of your patient. Please call with any questions. History of Present Illness History of present illness: Mr. Hernandez is a 57 year old male All Systems Review: A 10-system review of systems was performed and is negative for pertinent findings except as documented above in the HPI. Results 08/24/17 06:41 08/24/17 06:41 Lab Results 08/24/17 08/24/17 06:41 06:41 WBC 6.1 Hgb 12.0 L Hct 36.4 L Plt Count 194 Sodium 142 Potassium 4.2 Chloride 109 Carbon Dioxide 25 BUN 18 Creatinine 0.92 Glucose 89 Calcium 9.3 Magnesium 1.8 - Attending Attestation I examined this patient and my medical decision-making was reviewed with the Resident Physician. I agree with the documented findings, disposition and treatment plan. Mr. Hernandez reports a history of dizziness preceding loss of consciousness over the last few months. He describes orthostatic symptoms and admits to poor fluid intake. Demonstrated ARF on presentation that has resolved. Both lisinopril and imdur have been stopped. Initial BP 90 systolic has now improved. He's received IVFs. Echo demonstrated normal EF and no significant valve issues. No concerning telemetry findings. He feels much better today. I asked the nurse to walk him in the [place] with assistance. If no further dizziness, it appears reasonable to discharge. No further recommendations. Will sign off. Please call with questions.
[2017-08-23] MEDS ORDERED: 0.9 % Sodium Chloride 1,000 ML IVC SCH (18:15)
--- NOTE | 2017-08-23 18:48 | Internal Med Progress Note ---
Date of Encounter: 08/23/17 Time of Encounter: 10:00 - Assessment and plan (1) Positive urine drug screen Current Visit: Yes Status: Acute Assessment and plan: Drug screen shows positive for cocaine and marijuana. Patient denies drug use. (2) Syncope Current Visit: Yes Status: Acute Assessment and plan: Etiology is undetermined. Patient said he has almost a once a day syncope since June. [facility] but etiology undetermined. - Place patient on continuous cardiac monitoring to rule out arrhythmia. - EKG reviewed, there is no signs of AV block or branch block. - Echocardiogram. - Orthostatic vitals. - It is reported patient has hypotension when presented to ER. We will hold all hypertension medication and close monitor BP. - Cardiology consult appreciated, medication adjusted. Qualifiers: Syncope type: unspecified Qualified Code(s): R55 - Syncope and collapse (3) Acute kidney injury Current Visit: Yes Status: Acute Assessment and plan: Elevated creatinine level on admission. No baseline available. Improved after hydration. (4) Tobacco abuse Current Visit: Yes Status: Acute Assessment and plan: Smoking cessation education. Patient declined nicotine patch (5) DVT prophylaxis Current Visit: Yes Status: Acute Assessment and plan: Heparin subcutaneously (6) CHF (congestive heart failure) Current Visit: Yes Status: Acute Assessment and plan: Stable. Appears euvolemic. Repeat Echo LVEF 50-55%. Mild diastolic dysfunction Qualifiers: Congestive heart failure type: unspecified congestive heart failure type Congestive heart failure chronicity: chronic Qualified Code(s): I50.9 - Heart failure, unspecified (7) Hypertension Current Visit: Yes Status: Chronic Assessment and plan: Hold hypertension medication for now because patient presented hypotension ER. Closely monitor BP Qualifiers: Hypertension type: essential hypertension Qualified Code(s): I10 - Essential (primary) hypertension (8) Lung nodule Current Visit: Yes Status: Chronic Assessment and plan: Pulmonary consult appreciated. Outpatient follow-up with pulmonology - Subjective Interval history: Patient is a 57-year-old male admitted for syncope. His past medical history is significant for tobacco abuse, CHF, hypertension. Pt was seen and examined. Denies dizziness, palpitation, shortness of breath, or chest pain. Vitals are stable. No syncope today. Cardiology consult appreciated. The PVCs on Monitoring, Patient Was Placed on Low Rate Beta Delma. Continue Holding Lisinopril. Hold imdur. - Constitutional Vitals: Temp Pulse Resp BP Pulse Ox 97.8 F 88 14 110/76 94 08/23/17 15:24 08/23/17 15:24 08/23/17 15:24 08/23/17 15:24 08/23/17 15:24 General appearance: Present: cooperative, A&O X 3, no acute distress, underweight, answers questions appropriately - Head Head exam: Present: atraumatic, normocephalic - Eye Eye exam: Present: PERRL, conjuntiva pink, sclera anicteric Pupils: Present: PERRL - Neck Neck exam general surgery: Present: supple, trachea midline. Absent: lymphadenopathy - Respiratory Respiratory exam: Present: CTAB. Absent: accessory muscle use, rales, rhonchi, wheezes - Cardiovascular Cardiovascular exam: Present: RRR, +S1, +S2. Absent: diastolic murmur, gallop, rubs, systolic murmur - GI/Abdominal GI/Abdominal exam: Present: normal bowel sounds, soft, no peritoneal signs. Absent: distended, tenderness - Extremities Exam Extremities exam: Present: warm, radial pulses palpable and symmetrical. Absent : calf tenderness, cyanotic, pedal edema - Neurological Exam Neurological exam: Present: CN II-XII intact, oriented X3, no focal deficits. Absent: pronater drift, facial droop, speech deficit - Skin Skin exam: Present: dry, intact Internal Medicine: Result - Labs CBC & Chem 7: 08/23/17 06:35 08/23/17 06:35 Labs: Short CBC 08/23/17 Range/Units 06:35 WBC 4.5 (4.3-11.1) K/mcL Hgb 12.4 L (12.9-16.9) g/dL Hct 37.2 L (37.5-50.1) % Plt Count 179 (140-400) K/mcL Neutrophils # 2.4 (1.6-8.9) K/mcL BMP 08/23/17 06:35 Sodium 142 Potassium 4.8 H Chloride 110 H Carbon Dioxide 26 BUN 19 Creatinine 0.99 Glucose 99 Calcium 9.5 - ABG Interpretation ABG results: PT/INR, D-dimer PT 12.0 Seconds (9.4-12.1) 08/21/17 15:15 Consult Discharge Plan - Plan [facility]errals: [facility] [Primary Care Provider] -
[2017-08-24] MEDS: *HR* Heparin 5,000 UNIT/ML VIAL SQ SCH (06:04)
[2017-08-24 07:42] LABS: Basophils % 0.7 %; Eosinophils # 0.2 K/mcL (0.0-0.6); Hematocrit 36.4 % (37.5-50.1); Immature Granulocytes % 0.2 % (0-4); Lymphocytes # 1.5 K/mcL (0.6-4.6); Lymphocytes % 24.2 %; Mean Corpuscular Hemoglobin 29.3 pg (28.0-33.3); Mean Corpuscular Volume 88.8 fL (83.0-100.0); Mean Platelet Volume 10.5 fL (9.4-12.4); Monocytes # 0.5 K/mcL (0.0-1.3); Monocytes % 8.9 %; Neutrophils # 3.8 K/mcL (1.6-8.9); Platelet Count 194 K/mcL (140-400); Red Cell Distribution Width 12.7 % (11.5-14.5)
[2017-08-24 07:53] VITALS: BP 133/77
[2017-08-24 08:35] LABS: BUN/Creatinine Ratio 20 (6-26); Blood Urea Nitrogen 18 mg/dL (8-26); Calcium 9.3 mg/dL (8.6-10.8); Carbon Dioxide 25 mEq/L (19-29); Chloride 109 mEq/L (98-109); Glucose 89 mg/dL (70-99); Magnesium 1.8 mg/dL (1.6-2.6); Osmolality,Calculated 295 (280-300); Potassium 4.2 mEq/L (3.5-4.5); Sodium 142 mEq/L (136-145); eGFR For African Americans > 60 (> 60); eGFR For Non-African Americans > 60 (> 60)
--- NOTE | 2017-08-24 11:38 | Discharge Summary ---
Date of Encounter: 08/24/17 Time of Encounter: 10:00 - Discharge Diagnosis (1) Positive urine drug screen Priority: Primary Status: Acute (2) Syncope Priority: Primary Status: Acute Qualifiers: Syncope type: unspecified Qualified Code(s): R55 - Syncope and collapse (3) Acute kidney injury Priority: Primary Status: Acute (4) Tobacco abuse Priority: Primary Status: Acute (5) DVT prophylaxis Priority: Secondary Status: Acute (6) CHF (congestive heart failure) Priority: Secondary Status: Acute Qualifiers: Congestive heart failure type: unspecified congestive heart failure type Congestive heart failure chronicity: chronic Qualified Code(s): I50.9 - Heart failure, unspecified (7) Hypertension Priority: Secondary Status: Chronic Qualifiers: Hypertension type: essential hypertension Qualified Code(s): I10 - Essential (primary) hypertension (8) Lung nodule Priority: Primary Status: Chronic - Discharge Medications Prescriptions: Metoprolol [Lopressor] 12.5 mg PO BID #30 tablet Home Medications: Omeprazole [PriLOSEC] 20 mg PO DAILY 08/21/17 [History] Metoprolol [Lopressor] 12.5 mg PO BID #30 tablet 08/24/17 [Rx] Allergies/Adverse Reactions: 3 Allergy/AdvReac Type Severity Reaction Status Date / Time bee venom protein (honey bee) Allergy Anaphylaxis Verified 08/21/17 14:45 Procedures/tests Complete & Pending: Procedures Performed prior 72 hours Category Date Time Status CT chest wo con [CT] Routine Cat Scan 08/22/17 09:45 Completed ECG 12 lead ECG [ECG] Routine Y 08/22/17 05:31 Completed EV echocardiogram Stat Y 08/22/17 22:26 Completed - Notes to Outpatient Provider 1. Patient was found hypotension in emergency room, which most likely contributed to his syncope. His home medication has been changed. DC Imdur, lisinopril, metoprolol XL 50 mg by mouth daily. Place patient on low-dose metoprolol at 12.5 mg by mouth twice a day. Patient's vitals being stable on current medications. Please closely follow up his blood pressure. 2. Patient found lung nodule through CAT scan, with enlarged lymph node, need to follow pulmonology as outpatient. Date of admission: 08/21/17 19:16 [facility] care physician: [facility] Consults: 08/22/17 08:16 Consult to Pulmonology [CONS] Routine Consulting Provider: [facility] Reason for Consult: Incidental lung nodule 1.1cm on neck CT. Pt is a smoker Call Completed: No 08/23/17 13:40 Consult to Cardiology [CONS] Routine Comment: Consulting Provider: Cardiology Klaudia Reason for Consult: Syncope almost once a day Call Completed: Yes Discharging clinician: Ling García Anticipated date of discharge: 08/24/17 - Patient Status Disposition: Home, Self-Care Condition: Good Functional capacity at discharge: independent ambulation Overall status at discharge: patient is back to baseline - Discharge Instructions Follow Up With: [facility] [Primary Care Provider] - Additional Instructions: Please arrange pulmonology office visit in next week. - Diet and Activity Activity: increase activity as tolerated Diet: advance to your usual diet Interval History: HPI: Mr. Hernandez is a 57 year old male with PMH of CHF, HTN, tobacco abuse who is brought to the hospital by family s/p syncopal episode. Patient states he is a patient with the [facility] system and has been trying to get his syncope work up done since June 2017 as he has been having recurrent syncopal episodes since then. He states he was doing yard work earlier today and he started feeling lightheaded and having black spots infront of his eyes due to which he went back into the house, shortly after he got into his house, he fainted and fell to the ground. Denies any injuries to the head or any trauma. States his daughter witnessed this episode that prompted his visit to the ER. He reports of being an every day smoker and reports of cutting down to 1/2ppd. He reported that his daughter uses cocaine and he got a cigarettes from her prior to coming to the hospital which had marijuana in them. He denies any cocaine use as his tox screen is positive for cocaine and marijuana. He denies any chest pain at this time. He states these syncopal episodes occur sporadically with the same presentation as it happened today. Denies any lightheadedness, dizziness, headache, chest pain, sob, abd pain, n/v, fever, or chills at this time. Hospital course: Mr. Hernandez is a 57 year old male admitted for syncope. Patient was placed on continuous cardiac monitoring, echocardiogram has been placed. Results are unremarkable. Patient had recent duplex carotid already, negative for stenosis. Patient was found hypotensive with SBP 70s upon arriving emergency room. His home BP medication lisinopril and metoprolol XL 50 mg daily has been held during hospitalization. His BP is stable without BP medication. Patient was found multiple PVCs, cardiology consult saw patient and helped reviewing cardiac monitoring strip. Patient was added low-dose metoprolol and discontinued his Imdur by cardiology. Patient's vitals stable after medication adjustment and he has no syncope episode during hospitalization. He was educated to move slowly. Incidentally patient was found a lung nodule, pulmonology consult was called and saw patient. Patient will follow up with pulmonology as outpatient. I saw and examined the patient today. He is awake alert, oriented 3. Denies dizziness or lightheaded, denies palpitation or shortness of breath. Vital signs stable. Patient walking around the room without any difficulty. Patient with discharge home and follow-up with pulmonology for his lung nodule as outpatient. Time spent discussing smoking cessation with patient: 3 to 10 minutes - Time Spent with Patient Total time spent providing and/or coordinating discharge services: 25 minutes Less than 30 minutes - Constitutional Vitals: Temp Pulse Resp BP Pulse Ox 97.4 F L 74 16 133/77 99 08/24/17 07:50 08/24/17 07:50 08/24/17 07:50 08/24/17 07:50 08/24/17 07:50 General appearance: Present: cooperative, A&O X 3, no acute distress, underweight, answers questions appropriately - Head Head exam: Present: atraumatic, normocephalic - Eye Eye exam: Present: PERRL, conjuntiva pink, sclera anicteric Pupils: Present: PERRL - Neck Neck exam general surgery: Present: supple, trachea midline. Absent: lymphadenopathy - Respiratory Respiratory exam: Present: CTAB. Absent: accessory muscle use, rales, rhonchi, wheezes - Cardiovascular Cardiovascular exam: Present: RRR, +S1, +S2. Absent: diastolic murmur, gallop, rubs, systolic murmur - GI/Abdominal GI/Abdominal exam: Present: normal bowel sounds, soft, no peritoneal signs. Absent: distended, tenderness - Extremities Exam Extremities exam: Present: warm, radial pulses palpable and symmetrical. Absent : calf tenderness, cyanotic, pedal edema - Neurological Exam Neurological exam: Present: CN II-XII intact, oriented X3, no focal deficits. Absent: pronater drift, facial droop, speech deficit - Skin Skin exam: Present: dry, intact
--- NOTE | 2017-08-26 08:34 | Electrocardiograph Report ---
[address] [place] [address] Test Date: 2017-08-21 Pat Name: Wellington Hernandez Department: 103 Room: 2NE35 Gender: M Drawer In Jacquard Loom: : 1960 Requested By: Nora Mancuso Order Number: [id number] Reading MD: Clifford Warren DO Measurements Intervals [place] Rate: 70 P: 70 IA: 173 QRS: 67 QRSD: 103 T: 60 QT: 376 QTc: 397 Interpretive Statements Sinus rhythm Anteroseptal infarction, age undetermined Electronically Signed On 08-25-2017 9:12:52 EDT by Clifford Warren DO
--- NOTE | 2017-08-26 08:34 | Electrocardiograph Report ---
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
== END 2017-08-23 13:15 | disposition home or self-care (01) ==
LOC: 2NENU 14:44 → EMEROO 14:44 → 2NENU 21:42
PROVIDERS: ADMIT Internal Medicine; ATTEND Internal Medicine